=== PATIENT | female | born 1950 | race Caucasian/White ===

== ENCOUNTER 2016-03-21 10:28 | Day surgery (SDC) | payer MEDICARE ==
[~2016-03-21 10:28] MED LIST: FENTANYL 250 MCG/5 ML AMP IV PRN; LACTATED RINGERS 1,000 ML IV SCH; MIDAZOLAM HCL 5 MG/5 ML VIAL IV PRN
[2016-03-21] MEDS ORDERED: LACTATED RINGERS 1,000 ML ONE (10:36)
[2016-03-21] MEDS ORDERED: IV START KIT ONE (10:36)
[2016-03-21] MEDS ORDERED: FENTANYL 5 ML ONE (11:52)
[2016-03-21] MEDS ORDERED: MIDAZOLAM HCL 5 MG/5 ML VIAL ONE (11:52)
== END 2016-03-21 13:25 | disposition home or self-care (01) ==
LOC: SDC 10:28
PROVIDERS: ATTEND Internal Medicine Gastroenterology
PROC: 0DJD8ZZ Inspection of Lower Intestinal Tract, Via Natural or Artificial Opening Endoscopic (ICD-10-PCS; principal; 2016-03-21)
DX: Z12.11 Encounter for screening for malignant neoplasm of colon (principal); K57.30 Diverticulosis of large intestine without perforation or abscess without bleeding; Z86.010 Personal history of colon polyps; K74.3 Primary biliary cirrhosis; I10 Essential (primary) hypertension; F41.9 Anxiety disorder, unspecified; Z72.0 Tobacco use
CPT/HCPCS: 45378; J3010; J2250; J7120